=== PATIENT | female | born 1940 | race Caucasian/White ===

== ENCOUNTER 2017-09-17 08:40 | Inpatient (IN) | payer MEDICARE, OTHER ==
[2017-09-17] VITALS (15 sets, daily range): BP systolic 114–187; BP diastolic 51–114
[~2017-09-17] VITALS: Ht 160 cm; Wt 137.5 kg
--- NOTE | 2017-09-17 09:06 | ED Neurological Problem ---
General Chief Complaint: Neuro-Stroke Like Symptoms Stated Complaint: PT FEELS LIKE SHE'S HAVING A STROKE Source: patient Exam Limitations: clinical condition History of Present Illness Date Seen by Provider: Sep 17, 2017 Time Seen by Provider: 08:40 Initial Comments Patient presents to the ER by private conveyance with a chief complaint of less than hour prior to arrival she started experiencing dropping things right-sided weakness and difficulty speaking. She has no history of seizures, stroke, coronary artery disease. She quit smoking many years ago. She does have a history of diabetes, artificial valve replacement, not on blood thinners. Initial blood glucose is 278. The patient didn't take all of her medications this morning but she did not take her Lasix today because she usually skips assessment is traveling. Allergies and Home Medications Allergies Coded Allergies: amoxicillin (Verified Allergy, Unknown, 09/17/17) lisinopril (Verified Allergy, Unknown, 09/17/17) Constitutional: No chills, No diaphoresis, No fever, No malaise Eyes: Denies Blindness, Denies Blurred Vision, Denies Drainage, Denies Pain, Denies Photophobia Ears, Nose, Mouth, Throat: denies ear pain, denies ear discharge Respiratory: No cough, No short of breath Cardiovascular: No chest pain, edema, No Hx of Intervention, No palpitations, No syncope, No vascular heart diseas Gastrointestinal: No abdominal pain, No constipation, No diarrhea, No nausea Genitourinary: No discharge, No dysuria Musculoskeletal: No back pain, No joint pain Skin: No pruritus, No rash Psychiatric/Neurological: Denies Cognitive Dysfunction, Denies Headache, Numbness (r arm), Denies Tingling, Denies Unable to Move Lower Ext, Denies Unable to Move Upper Ext, Weakness Past Xbjfvii-Wghwcm-Eazkze Hx Patient Social History Alcohol Use: Denies Use Alcohol Beverage of Choice: Wine Smoking Status: Former Smoker Type Used: Cigarettes Recent Foreign Travel: No Contact w/Someone Who Travel: No Physical Exam Vital Signs Vital Signs - First Documented 09/17/17 09/17/17 08:40 08:50 Temp 96.8 Pulse 72 Resp 18 B/P (MAP) 137/85 (102) Pulse Ox 95 O2 Flow Rate 0 Capillary Refill : General Appearance: WD/WN, mild distress HEENT: PERRL/EOMI, normal ENT inspection, TMs normal, pharynx normal ( oropharynx mucosa is mildly dry.) Neck: non-tender, normal inspection Respiratory: chest non-tender, lungs clear, normal breath sounds, no respiratory distress, no accessory muscle use Cardiovascular: normal peripheral pulses, regular rate, rhythm, no edema Peripheral Pulses: 2+ Dorsalis Pedis (R), 2+ Left Dors-Pedis (L), 2+ Radial Pulses (R), 2+ Radial Pulses (L) Gastrointestinal: normal bowel sounds, non tender, soft Extremities: normal range of motion, non-tender, normal inspection, normal capillary refill, pedal edema (trace) Neurologic/Psychiatric: alert, normal mood/affect, oriented x 3, No abnormal cerebellar tests, facial droop (subtle drooping around the right eye), motor weakness (right upper extremity 4 out of 5 motor strength versus 5 out of 5 left side. Bilateral lower extremities motor strength 5 out of 5), sensory deficit (numbness right upper extremity) Crainal Nerves: normal hearing, PERRL, abnormal speech (word searching and word salad), facial asymmetry (right), facial droop, No facial paresthesias, No facial weakness Coordination/Gait: ABN nose to finger (R) Motor/Sensory: sensory deficit (right upper extremity numbness), weak motor strength RUE (4 out of 5) Skin: normal color, warm/dry Stroke Onset of Symptoms Date of Onset of Symptoms: Sep 17, 2017 Time of Symptom Onset: 07:45 Onset of Symptoms: Yes Symptoms onset unknown: No NIH Stroke Scale Assessment Select: Initial Level of Consciousness: 0=Alert (0), Level of Consciousness- Questions: 0=Answers both month/age (0), LOC Commands: 0=Performs both tasks (0) , Gaze: Normal (0), Visual Bella: 0=No visual loss (0), Facial Movement ( Facial Paresis): 1=Minor paralysis (1), Motor Function-Arms Right: 1=Drift (1), Motor Function-Arms Left: 0=No drift (0), Motor Function-Legs Right: 0=No drift (0), Motor Function-Legs Left: 0=No drift (0), Limb Ataxia: 0=Absent (0), Sensory: 1=Mild to Moderate loss (1), Best Language: 1=Mild to moderat aphasia ( 1), Dysarthria: 1=Mild to moderate loss (1), Extinction & Inattention: 0=No abnormality (0), Total: 5 Stroke Thrombolytic Exclusion Age 18 or Over: Yes Acute intenal hemorrhage: No History of CVA: No Uncontrolled Coagulation Defec: No Intracranial Hemorrhage: No Severe Hypertension: No GI or Bleed: No Subarachnoid Hemorrhage: No Intracranial Neoplasm/Aneurysm: No Oral Anticoagulants: No Surgery or Trauma: No Puncture of Non-Compressible V: No Recent CPR: No Diabetic Hemorrhagic Retinopat: No Organ Biopsy: No Recent Obstetric Delivery: No Glucose: No Significant Hepatic Dysfunctio: No NIH Stoke Scale >22: No Bacterial Endocarditis: No Pericarditis: No Improving Symptoms: No Platelets: No TPA Contraindication: No Progress/Results/Core Measures Results/Orders Lab Results Laboratory Tests Test 09/17/17 08:55 09/17/17 08:57 09/17/17 09:50 Range/Units Glucometer 278 H 70-110 MG/DL White Blood Count 6.9 4.3-11.0 10^3/uL Red Blood Count 4.24 L 4.35-5.85 10^6/uL Hemoglobin 12.3 11.5-16.0 G/DL Hematocrit 37 35-52 % Mean Corpuscular Volume 88 80-99 FL Mean Corpuscular Hemoglobin 29 25-34 PG Mean Corpuscular Hemoglobin Concent 33 32-36 G/DL Red Cell Distribution Width 14.4 10.0-14.5 % Platelet Count 180 130-400 10^3/uL Mean Platelet Volume 12.0 H 7.4-10.4 FL Neutrophils (%) (Auto) 58 42-75 % Lymphocytes (%) (Auto) 25 12-44 % Monocytes (%) (Auto) 11 0-12 % Eosinophils (%) (Auto) 5 0-10 % Basophils (%) (Auto) 1 0-10 % Neutrophils # (Auto) 4.0 1.8-7.8 X 10^3 Lymphocytes # (Auto) 1.8 1.0-4.0 X 10^3 Monocytes # (Auto) 0.8 0.0-1.0 X 10^3 Eosinophils # (Auto) 0.3 0.0-0.3 10^3/uL Basophils # (Auto) 0.0 0.0-0.1 10^3/uL Prothrombin Time 12.4 12.2-14.7 SEC INR Comment 0.9 0.8-1.4 Activated Partial Thromboplast Time 29 24-35 SEC D-Dimer 1.12 H 0.00-0.49 UG/ML Sodium Level 137 135-145 MMOL/L Potassium Level 4.4 3.6-5.0 MMOL/L Chloride Level 103 98-107 MMOL/L Carbon Dioxide Level 21 21-32 MMOL/L Anion Gap 13 5-14 MMOL/L Blood Urea Nitrogen 21 H 7-18 MG/DL Creatinine 1.33 H 0.60-1.30 MG/DL Estimat Glomerular Filtration Rate 39 BUN/Creatinine Ratio 16 Glucose Level 265 H 70-105 MG/DL Calcium Level 9.4 8.5-10.1 MG/DL Total Bilirubin 0.5 0.1-1.0 MG/DL Aspartate Amino Transf (AST/SGOT) 15 5-34 U/L Alanine Aminotransferase (ALT/SGPT) 13 0-55 U/L Alkaline Phosphatase 72 40-136 U/L Troponin I < 0.30 <0.30 NG/ML Total Protein 7.5 6.4-8.2 GM/DL Albumin 3.8 3.2-4.5 GM/DL Urine Color YELLOW Urine Clarity CLEAR Urine pH 6 5-9 Urine Specific [place] 1.010 L 1.016-1.022 Urine Protein NEGATIVE NEGATIVE Urine Glucose (UA) 2+ H NEGATIVE Urine Ketones NEGATIVE NEGATIVE Urine Nitrite NEGATIVE NEGATIVE Urine Bilirubin NEGATIVE NEGATIVE Urine Urobilinogen NORMAL NORMAL MG/DL Urine Leukocyte Esterase NEGATIVE NEGATIVE Urine RBC (Auto) NEGATIVE NEGATIVE Urine RBC NONE /HPF Urine WBC NONE /HPF Urine Squamous Epithelial Cells NONE /HPF Urine Crystals NONE /LPF Urine Bacteria NEGATIVE /HPF Urine Casts NONE /LPF Urine Mucus NEGATIVE /LPF Urine Culture Indicated NO My Orders Orders - CHRISSY HER Ct Head Wo-R/O Stroke (09/17/17 08:44) Cbc With Automated Diff (09/17/17 08:59) Protime With Inr (09/17/17 08:59) Partial Thromboplastin Time (09/17/17 08:59) Comprehensive Metabolic Panel (09/17/17 08:59) Fibrin Degradation Products (09/17/17 08:59) Troponin I (09/17/17 08:59) Ua Culture If Indicated (09/17/17 08:59) Chest 1 View, Ap/Pa Only (09/17/17 08:59) Ekg Tracing (09/17/17 08:59) Nothing By Mouth (09/17/17 Lunch) Accucheck Stat ONCE (09/17/17 08:59) Saline Lock/Iv-Start (09/17/17 08:59) Saline Lock/Iv-Start (09/17/17 08:59) Vital Signs - Stroke Q15M (09/17/17 08:59) O2 (09/17/17 08:59) Intake & Output 06,14,22 (09/17/17 08:59) Monitor-Rhythm Ecg Trace Only (09/17/17 08:59) Dysphagia Screening Tool (09/17/17 08:59) Post Thrombolytic Adminstratio (09/17/17 08:59) Vital Signs - Stroke Q15M (09/17/17 09:30) Dysphagia Screening Tool (09/17/17 09:30) Alteplase (Activase) (Activase Injection (09/17/17 09:30) Ns Iv 1000 Ml (Sodium Chloride 0.9%) (09/17/17 09:30) Post Thrombolytic Adminstratio (09/17/17 09:30) Ct Angio Head W Wo (09/17/17 09:30) Post Thrombolytic Adminstratio (09/17/17 09:30) Iohexol Injection (Omnipaque 350 Mg/Ml 1 (09/17/17 10:15) Ns (Ivpb) (Sodium Chloride 0.9%) (09/17/17 10:15) Lactated Ringers (Lr 1000 Ml Iv Solution (09/17/17 10:09) Medications Given in ED Current Medications Medications Dose Ordered Sig/Ryan Route Start Time Stop Time Status Last Admin Dose Admin Alteplase, Recombinant (0.9mg/ kg-max 90mg) with ... 0930 ONCE IV 09/17/17 09:30 09/17/17 09:32 DC 09/17/17 09:50 90 MG Iohexol 65 ml ONCE ONCE IV 09/17/17 10:15 09/17/17 10:16 DC 09/17/17 10:32 65 ML Sodium Chloride 250 ml ONCE ONCE IV 09/17/17 10:15 09/17/17 10:16 DC 09/17/17 10:32 80 ML Vital Signs/I&O Vital Sign - Last 12Hours 09/17/17 09/17/17 08:40 08:50 Temp 96.8 Pulse 72 Resp 18 B/P (MAP) 137/85 (102) Pulse Ox 95 O2 Flow Rate 0 ECG Initial ECG Impression Date: Sep 17, 2017 Initial ECG Impression Time: 08:50 Initial ECG Rate: 67 Initial ECG Rhythm: Normal Sinus Initial ECG Intervals: Normal Initial ECG Impression: Normal, Nonspecific Changes (right bundle-branch block) Initial ECG Comparisson: No Previous ECG Available Comment No ST segment elevation or depression. Diagnostic Imaging Diagonstic Imaging: CT Plain Films/CT/US/NM/MRI: head Comments VIA [facility], [facility]. [place], [place] NAME: TELLY ZAMBRANO [facility] REC#: [id number] PT STATUS: REG ER : 1940 PHYSICIAN: CHRISSY HER MD ADMIT DATE: 09/17/17/ER Draft Date of Exam:09/17/17 CT HEAD WO-R/O STROKE Clinical indication: Stroke, slurred speech, and right-sided weakness. Exam: Axial CT scan of the brain performed without IV contrast. Comparison: None. Findings: There is no evidence of acute cerebral infarct, intracranial hemorrhage, or gross mass effect. There is a roughly 7 mm circumscribed low-attenuation area seen near the region of the right caudate head which may represent a chronic lacunar infarct. There is subtle focal areas of low-attenuation white matter changes in both cerebral hemispheres, likely representing chronic small vessel ischemic disease. There is diffuse brain parenchymal volume loss noted. There is calcification seen in the left sylvian fissure region, likely vascular. There is normal aguilar-white matter distinction. The brain parenchymal volume appears appropriate for patient's age. There is no significant midline shift or herniation. There is no evidence of hydrocephalus. The basal cisterns are unremarkable. The skull, extracranial soft tissue, and orbits are unremarkable. There is minimal mucosal thickening involving both maxillary sinuses. Impression: 1: There is no gross evidence of acute intracranial process. If there is continued clinical concern for acute cerebral infarct, then MRI of the brain would better evaluate. 2: Suspected small chronic lacunar infarct seen adjacent to the right caudate head. 3: Age-related brain parenchymal changes. Dictated on workstation # [id number] Dict: 09/17/17 0854 Trans: 09/17/17 0908 GREGOR [id number] Interpreted by: ZAIDA GAGE MD Electronically signed by: Reviewed: Reviewed by Me Diagonstic Imaging: CT (angio) Plain Films/CT/US/NM/MRI: head (neck) Comments VIA [place], [place] NAME: TELLY ZAMBRANO [facility] REC#: [id number] PT STATUS: REG ER : 1940 PHYSICIAN: CHRISSY HER MD ADMIT DATE: 09/17/17/ER Draft Date of Exam:09/17/17 CT ANGIO HEAD W WO CLINICAL INDICATION: Questionable stroke. EXAM: A CT angiogram of the head was performed with 65 cc of Omnipaque 350 IV contrast. Sagittal and coronal MIP images were created to better evaluate the anatomy. Head CT postcontrast delayed images were also obtained. COMPARISON: Head CT without contrast dated 09/17/2017. FINDINGS: There is atherosclerotic disease involving the bilateral cavernous carotid arteries which show at least moderate stenoses bilaterally. Otherwise, there is no evidence of occlusion of the [place] vascular structures. There is no vascular malformation, aneurysm, or dissection seen. The bilateral ACAs, MCAs, inspector semiconductor wafer, basilar artery, and intradural vertebral arteries are patent and unremarkable. The bilateral PICAs are patent. The dural venous sinuses show no gross abnormality as visualized. The brain parenchyma is stable with no evidence of acute cerebral infarct, intracranial hemorrhage, brain herniation, or midline shift. There is brain parenchymal volume loss again seen. There is no abnormal IV contrast enhancement or enhancing mass seen. There is no hydrocephalus. The basal cisterns are unremarkable. A partial empty sella turcica is noted. The extracranial soft tissue, skull, and orbits are unremarkable. Stable mild bilateral maxillary sinus disease. The temporal bone structures show no significant abnormality. IMPRESSION: 1. There is no CT evidence of acute cerebral infarct. There is no abnormal IV contrast enhancement, intracranial hemorrhage, or brain herniation. 2. 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 3. Otherwise, the remainder of the [place] vascular structures show no significant stenosis, vascular malformation, aneurysm, or dissection. 4. Stable age-related brain parenchymal changes. 5. Partially empty sella turcica. Dictated on workstation # [id number] Dict: 09/17/17 1048 Trans: 09/17/17 1106 [id number] Interpreted by: ZAIDA GAGE MD Electronically signed by: Reviewed: Reviewed by Me Diagonstic Imaging: Xray Plain Films/CT/US/NM/MRI: chest Comments VIA [facility]. [place], [place] NAME: TELLY ZAMBRANO [facility] REC#: [id number] PT STATUS: REG ER : 1940 PHYSICIAN: CHRISSY HER MD ADMIT DATE: 09/17/17/ER Draft Date of Exam:09/17/17 CHEST 1 VIEW, AP/PA ONLY INDICATION: Stroke. Time of exam 9:22 AM No prior studies are available for comparison. The heart is enlarged. A prosthetic cardiac valve is identified. The lungs are clear. There is no evidence of infiltrate or congestive failure. No effusion or pneumothorax is seen. IMPRESSION: Cardiomegaly. No acute cardiopulmonary process is detected. Dictated on workstation # [id number] Dict: 09/17/17 0935 Trans: 09/17/17 0938 [facility] [id number] Interpreted by: RAISA NINA MD Electronically signed by: Reviewed: Reviewed by Me Consults Consults : Consults Notes [facility] Neuro: Vin; he agrees with doing TPA at this time. Do not have any contraindication. After the TPA is gone and he recommends getting a CTA and if there is any large caliber obstruction or stenosis should call him back. If there is not then he felt comfortable keeping her down here for a inpatient workup. Departure Communication (Admissions) Time/Spoke to Admitting Phy: 11:[address] Lyles and she agrees to see the patient. Impression Impression: Primary Impression: Cerebrovascular accident due to cerebral artery occlusion Disposition: ADMITTED INPATIENT Condition: Stable Admissions Decision to Admit Reason: Admit from ER (General) Decision to Admit/Date: Sep 17, 2017 Time/Decision to Admit Time: 11:21 Departure-Patient Inst. Referrals: NO,LOCAL PHYSICIAN (PCP/Family) Primary Care Physician Copy Copies To 1: JENNIFER VALADEZ MD, TITUS J Sep 17, 2017 09:06
[2017-09-17 09:13] LABS: BASOPHILS % (AUTO) 1 % (0-10); EOSINOPHILS # (AUTO) 0.3 10^3/uL (0.0-0.3); EOSINOPHILS % (AUTO) 5 % (0-10); HEMATOCRIT 37 % (35-52); HEMOGLOBIN 12.3 G/DL (11.5-16.0); LYMPHOCYTES # (AUTO) 1.8 X 10^3 (1.0-4.0); LYMPHOCYTES % (AUTO) 25 % (12-44); MEAN CORPUSCULAR HEMOGLOBIN 29 PG (25-34); MEAN CORPUSCULAR HGB CONC 33 G/DL (32-36); MEAN CORPUSCULAR VOLUME 88 FL (80-99); MONOCYTES # (AUTO) 0.8 X 10^3 (0.0-1.0); MONOCYTES % (AUTO) 11 % (0-12); NEUTROPHILS % (AUTO) 58 % (42-75); PLATELET COUNT 180 10^3/uL (130-400); RED BLOOD COUNT 4.24 10^6/uL (4.35-5.85); RED CELL DISTRIBUTION WIDTH 14.4 % (10.0-14.5); WHITE BLOOD COUNT 6.9 10^3/uL (4.3-11.0)
[2017-09-17] MEDS ORDERED: ALTEPLASE 100 MG/VIAL (ACTIVASE) IV ONE (09:30)
[2017-09-17] MEDS ORDERED: NS IV 1000 ML 1,000 ML IV SCH (09:30)
[2017-09-17 09:32] LABS: ALANINE AMINOTRANSFERASE 13 U/L (0-55); ALBUMIN 3.8 GM/DL (3.2-4.5); ALKALINE PHOSPHATASE 72 U/L (40-136); BILIRUBIN,TOTAL 0.5 MG/DL (0.1-1.0); BUN/CREATININE RATIO 16; CALCIUM 9.4 MG/DL (8.5-10.1); CARBON DIOXIDE 21 MMOL/L (21-32); CHLORIDE 103 MMOL/L (98-107); CREATININE SERUM 1.33 MG/DL (0.60-1.30); GFR ESTIMATED 39; GLUCOSE 265 MG/DL (70-105); INR 0.9 (0.8-1.4); POTASSIUM 4.4 MMOL/L (3.6-5.0); PROTHROMBIN TIME PATIENT 12.4 SEC (12.2-14.7); SODIUM 137 MMOL/L (135-145); TOTAL PROTEIN 7.5 GM/DL (6.4-8.2)
[2017-09-17 09:35] LABS: FIBRIN DEGRADATION PRODUCTS 1.12 UG/ML (0.00-0.49)
--- NOTE | 2017-09-17 09:38 | Diagnostic Imaging Report ---
INDICATION: Stroke. Time of exam 9:22 AM No prior studies are available for comparison. The heart is enlarged. A prosthetic cardiac valve is identified. The lungs are clear. There is no evidence of infiltrate or congestive failure. No effusion or pneumothorax is seen. IMPRESSION: Cardiomegaly. No acute cardiopulmonary process is detected. Dictated by: Dictated on workstation # [id number]
[2017-09-17 10:02] LABS: BILIRUBIN,URINE NEGATIVE (NEGATIVE); CLARITY,URINE CLEAR; COLOR,URINE YELLOW; GLUCOSE, URINE (UA) 2+ (NEGATIVE); KETONES,URINE NEGATIVE (NEGATIVE); LEUKOCYTE ESTERASE ,URINE NEGATIVE (NEGATIVE); NITRITE,URINE NEGATIVE (NEGATIVE); PH,URINE 6 (5-9); PROTEIN,URINE NEGATIVE (NEGATIVE); UROBILINOGEN,URINE NORMAL (NORMAL)
[2017-09-17] MEDS ORDERED: LACTATED RINGERS 1,000 ML IV ONE (10:09)
[2017-09-17 10:14] LABS: BACTERIA,URINE NEGATIVE /HPF
[2017-09-17] MEDS ORDERED: IOHEXOL 350 MG/ML 100 ML (OMNIPAQUE 350) VIAL IV ONE (10:15)
[2017-09-17] MEDS ORDERED: NS 250 ML (IVPB) BAG IV ONE (10:15)
--- NOTE | 2017-09-17 11:06 | Diagnostic Imaging Report ---
CLINICAL INDICATION: Questionable stroke. EXAM: A CT angiogram of the head was performed with 65 cc of Omnipaque 350 IV contrast. Sagittal and coronal MIP images were created to better evaluate the anatomy. Head CT postcontrast delayed images were also obtained. COMPARISON: Head CT without contrast dated 09/17/2017. FINDINGS: There is atherosclerotic disease involving the bilateral cavernous carotid arteries which show at least moderate stenoses bilaterally. Otherwise, there is no evidence of occlusion of the [place] vascular structures. There is no vascular malformation, aneurysm, or dissection seen. The bilateral ACAs, MCAs, tyre finisher and examiner, basilar artery, and intradural vertebral arteries are patent and unremarkable. The bilateral PICAs are patent. The dural venous sinuses show no gross abnormality as visualized. The brain parenchyma is stable with no evidence of acute cerebral infarct, intracranial hemorrhage, brain herniation, or midline shift. There is brain parenchymal volume loss again seen. There is no abnormal IV contrast enhancement or enhancing mass seen. There is no hydrocephalus. The basal cisterns are unremarkable. A partial empty sella turcica is noted. The extracranial soft tissue, skull, and orbits are unremarkable. Stable mild bilateral maxillary sinus disease. The temporal bone structures show no significant abnormality. IMPRESSION: 1. There is no CT evidence of acute cerebral infarct. There is no abnormal IV contrast enhancement, intracranial hemorrhage, or brain herniation. 2. 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 3. Otherwise, the remainder of the [place] vascular structures show no significant stenosis, vascular malformation, aneurysm, or dissection. 4. Stable age-related brain parenchymal changes. 5. Partially empty sella turcica. Dictated by: Dictated on workstation # [id number]
--- NOTE | 2017-09-17 12:25 | History & Physical-Hospitalist ---
HPI History of Present Illness: HPI/Chief Complaint Pt is a 77yoCF with a PMH of DM, HTN, HLD from [facility] who presented to the ER with CC slurred speech and weakness. History is difficult to obtain as she is still having some difficulty finding words. Her sister in law at bedside provides some history as well. She reports she was in [place] visiting family when she had acute onset slurred speech and inability to find words. She does not report any other symptoms but her sister in law states she also had generalized weakness at onset and was unable to walk. On arrival to the ER she was found to have an NIH of [address] head was negative so she was deemed a candidate for TPA. She reports since receiving TPA she does feel better and that he speech is somewhat improving. Exam Limitations: clinical condition Date Seen 09/17/17 Time Seen by Provider: 12:05 Attending Physician Jennifer Hoffman MD PCP No,Local Physician Referring Physician Date of Admission Sep 17, 2017 at 11:20 Home Medications & Allergies Home Medications Reviewed patient Home Medication Reconciliation Form Allergies Allergies Coded Allergies amoxicillin (Verified Allergy, Unknown, 09/17/17) lisinopril (Verified Allergy, Unknown, 09/17/17) Past Lzvywcu-Eahbnr-Rijksh Hx Patient Social History Marrital Status: Alcohol Use: Denies Use Recreational Drug Use: No Smoking Status: Former Smoker Type Used: Cigarettes Recent Foreign Travel: No Contact w/other who traveled: No Recent Hopitalizations: No Recent Infectious Disease Expo: No Seasonal Allergies Seasonal Allergies: No Surgeries Yes Cardiac Respiratory Yes Currently Using CPAP: Yes Cardiovascular Yes High Cholesterol, Hypertension Neurological No Genitourinary No Gastrointestinal No Musculoskeletal No Endocrine History of Endocrine Disorders: Yes Endocrine Disorders: Diabetes, Non-Insulin dep HEENT History of HEENT Disorders: No Cancer No Psychosocial History of Psychiatric Problem: No Integumentary History of Skin or Integumenta: No Family Medical History Significant Family History: No Pertinent Family Hx Review of Systems Constitutional: No chills, No fever, weakness EENTM: No blurred vision, No double vision, No nose congestion, No throat pain Respiratory: No cough, No dyspnea on exertion, No short of breath Cardiovascular: No chest pain, No edema, No palpitations Gastrointestinal: No abdominal pain, No constipation, No diarrhea, No nausea, No vomiting Genitourinary: No dysuria, No frequency : No Musculoskeletal: No joint pain, No muscle pain, muscle weakness Skin: No lesions, No rash Psychiatric/Neurological: Denies Anxiety, Denies Depressed, Denies Headache, Denies Numbness, Denies Paresthesia, Denies Tingling, Weakness, Other (slurred speech) Physical Exam Physical Exam Vital Signs Vital Signs - First Documented 09/17/17 09/17/17 09/17/17 08:40 08:50 12:50 Temp 96.8 Pulse 72 Resp 18 B/P (MAP) 137/85 (102) Pulse Ox 95 O2 Delivery Room Air O2 Flow Rate 0 Capillary Refill : Less Than 3 Seconds General Appearance: No Apparent Distress, WD/WN, Obese HEENT: PERRL/EOMI, Moist Mucous Membranes Neck: Non Tender, Supple, No JVD Respiratory: Lungs Clear, No Respiratory Distress Cardiovascular: Regular Rate, Rhythm, No Murmur Gastrointestinal: Normal Bowel Sounds, Non Tender, Soft Extremity: Normal Capillary Refill, Non Tender, No Calf Tenderness, No Pedal Edema Neurologic/Psychiatric: Alert, Oriented x3, No Motor/Sensory Deficits, Normal Mood/Affect, art psychotherapist or therapist II-XII Norm as Tested, Other (dysphasia noted, gait not tested) Skin: Normal Color, Warm/Dry Results Results/Procedures Lab Laboratory Tests 09/17/17 08:57 09/18/17 03:40 Radiology Date of Exam:09/17/17 CT HEAD WO-R/O STROKE Clinical indication: Stroke, slurred speech, and right-sided weakness. Exam: Axial CT scan of the brain performed without IV contrast. Comparison: None. Findings: There is no evidence of acute cerebral infarct, intracranial hemorrhage, or gross mass effect. There is a roughly 7 mm circumscribed low-attenuation area seen near the region of the right caudate head which may represent a chronic lacunar infarct. There is subtle focal areas of low-attenuation white matter changes in both cerebral hemispheres, likely representing chronic small vessel ischemic disease. There is diffuse brain parenchymal volume loss noted. There is calcification seen in the left sylvian fissure region, likely vascular. There is normal aguilar-white matter distinction. The brain parenchymal volume appears appropriate for patient's age. There is no significant midline shift or herniation. There is no evidence of hydrocephalus. The basal cisterns are unremarkable. The skull, extracranial soft tissue, and orbits are unremarkable. There is minimal mucosal thickening involving both maxillary sinuses. Impression: 1: There is no gross evidence of acute intracranial process. If there is continued clinical concern for acute cerebral infarct, then MRI of the brain would better evaluate. 2: Suspected small chronic lacunar infarct seen adjacent to the right caudate head. 3: Age-related brain parenchymal changes. Date of Exam:09/17/17 CT ANGIO HEAD W WO CLINICAL INDICATION: Questionable stroke. EXAM: A CT angiogram of the head was performed with 65 cc of Omnipaque 350 IV contrast. Sagittal and coronal MIP images were created to better evaluate the anatomy. Head CT postcontrast delayed images were also obtained. COMPARISON: Head CT without contrast dated 09/17/2017. FINDINGS: There is atherosclerotic disease involving the bilateral cavernous carotid arteries which show at least moderate stenoses bilaterally. Otherwise, there is no evidence of occlusion of the [place] vascular structures. There is no vascular malformation, aneurysm, or dissection seen. The bilateral ACAs, MCAs, professor of historical theology, basilar artery, and intradural vertebral arteries are patent and unremarkable. The bilateral PICAs are patent. The dural venous sinuses show no gross abnormality as visualized. The brain parenchyma is stable with no evidence of acute cerebral infarct, intracranial hemorrhage, brain herniation, or midline shift. There is brain parenchymal volume loss again seen. There is no abnormal IV contrast enhancement or enhancing mass seen. There is no hydrocephalus. The basal cisterns are unremarkable. A partial empty sella turcica is noted. The extracranial soft tissue, skull, and orbits are unremarkable. Stable mild bilateral maxillary sinus disease. The temporal bone structures show no significant abnormality. IMPRESSION: 1. There is no CT evidence of acute cerebral infarct. There is no abnormal IV contrast enhancement, intracranial hemorrhage, or brain herniation. 2. 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 3. Otherwise, the remainder of the [place] vascular structures show no significant stenosis, vascular malformation, aneurysm, or dissection. 4. Stable age-related brain parenchymal changes. 5. Partially empty sella turcica. Assessment/Plan Admission Diagnosis Dysphasia- rule out stroke Admission Status: Inpatient Order (span 2 midnights) Reason for Inpatient Admission: Acute onset dysphasia, rule out stroke s/p TPA Diagnosis/Problems Diagnosis/Problems (1) Acute CVA (cerebrovascular accident) Status: Acute Assessment & Plan: Clinically appears to be an acute stroke though no evidence upon review of imaging S/p TPA will monitor in ICU Neurochecks Will get MRI, carotid dopplers, echo Monitor on Tele Will getting lipid panel Hold ASA until 24 hour after TPA PT/OT/ST (2) Dysphasia Status: Acute Assessment & Plan: Will consult Speech for formal eval (3) HTN (hypertension) Status: Chronic Assessment & Plan: Low to normotensive currently Hold antihypertensives Qualifiers: Qualified Codes: I10 - Essential (primary) hypertension (4) Non-insulin dependent type 2 diabetes mellitus Status: Chronic Assessment & Plan: Will hold metformin as just received contrast SSI A (5) Dyslipidemia associated with type 2 diabetes mellitus Status: Chronic Assessment & Plan: Resume statin tonight if passes swalow eval (6) Prophylactic measure Status: Acute Assessment & Plan: Hold Lovenox for TPA SCDs only today- can resume tomorrow NPO until swallow eval [place] [id number] Clinical Quality Measures Stroke: Date of last known well: Sep 17, 2017 Time of last known well: 07:45 Symptoms onset unknown: No Quality Measures-Stroke Pt: Lipid panel ordered, VTE JENNIFER HOFFMAN MD Sep 17, 2017 12:25
[2017-09-17] MEDS ORDERED: METO-370 PO (13:27)
[2017-09-17] MEDS ORDERED: IRBE150T26 PO (13:27)
[2017-09-17] MEDS ORDERED: ROSU40TA21 PO (13:27)
[2017-09-17] MEDS ORDERED: OMEP20CA12 PO (13:27)
[2017-09-17] MEDS ORDERED: AMLO10TA2 PO (13:27)
[2017-09-17] MEDS ORDERED: FURO40TA4 PO (13:27)
[2017-09-17] MEDS ORDERED: GLIP-197 PO (13:28)
[2017-09-17] MEDS ORDERED: SPIR25TA3 PO (13:28)
[2017-09-17] MEDS ORDERED: GLIP-173 PO (13:50)
[2017-09-17] MEDS ORDERED: ASPI-983 PO (13:51)
[2017-09-17] MEDS ORDERED: PEG15DRO3 OU (13:51)
[2017-09-17] MEDS ORDERED: METF1000 PO ×2 (13:51)
[2017-09-17] MEDS ORDERED: CHOL5000 PO (13:51)
--- NOTE | 2017-09-17 14:58 | Diagnostic Imaging Report ---
EXAMINATION: Bilateral carotid Doppler. INDICATION: CVA. COMPARISON: There are no previous studies available for comparison. FINDINGS: There is mild hard and soft plaque formation of both carotid systems. The flow velocities failed to show any sign of a hemodynamically significant stenosis of the common or internal carotid arteries. The flow velocities are as follows: Mid CCA: right 108 cm/s and left 79.5. Proximal ICA: right 105 and left 62.7. Mid ICA: right 103 and left 87. Distal ICA: right 87.6 and left 66.8. ICA/CCA: right 0.97 and left 1.09. Both vertebral arteries are identified and there is antegrade flow bilaterally. IMPRESSION: There is atherosclerotic disease involving both carotid systems but there is no evidence for a hemodynamically significant stenosis of the common or internal carotid arteries. Dictated by: Dictated on workstation # [id number]
--- NOTE | 2017-09-17 15:02 | Physical Therapy Evaluation ---
PT Evaluation-General Medical Diagnosis Admission Date Sep 17, 2017 at 11:20 Medical Diagnosis: CVA Onset Date: Sep 17, 2017 Therapy Diagnosis Therapy Diagnosis: generalized weakness/debility Height/Weight Height (Feet): 5 Height (Inches): 3.00 Weight (Pounds): 320 Precautions Precautions/Isolations: Fall Prevention, Standard Precautions Weight Bear Status Right Lower Extremity: Right Weight Bearing/Tolerated Left Lower Extremity: Left Weight Bearing/Tolerated Referral Physician: Yasmin Reason for Referral: Evaluation/Treatment Medical History Pertinent Medical History: DM, HTN Additional Medical History morbid obesity Current History ED with right sided weakness and difficulty speaking Reviewed History: Yes Social History Home: Single Level Current Living Status: Spouse Entry Into Home: Level Entry Prior/Core FIM Prior Level of Function Functional [place] Measure 0=Not Assessed/NA 4=Minimal Assistance 1=Total Assistance 5=Supervision or Setup 2=Maximal Assistance 6=Modified [place] 3=Moderate Assistance 7=Complete [place] Bed Mobility: 6 Transfers (B,C,W/C) (FIM): 6 Gait: 6 PT Evaluation-Current Subjective Patient agrees to PT. Pain Numeric Pain Scale: 0-No Pain Location: No Pain Reported Objective Patient Orientation: Normal For Age Problem Solving: Good Attachments: Rosario Catheter ROM/Strength ROM Lower Extremities bilateral LE WNL Strength Lower Extremities right knee flexion/extension 4+/5; hip flexion 4+/5; DF/PF 4+/5; abd/add 4+/5 left knee flexion/extension 4+/5; hip flexion 4+/5; DF/PF 4+/5; abd/add 4+/5 Integumentary/Posture Integumentary refer to nursing notes Bowel Incontinence: No Bladder Incontinence: Rosario Cath Posture WFL Neuromuscular (Tone, Coordination, Reflexes) slightly diminished coordination right LE with diminished proprioception Sensory Vision: Functional Hearing: Functional Sensation Right Lower Extremit: Intact Sensation Left Lower Extremity: Intact Transfers Functional [place] Measure 0=Not Assessed/NA 4=Minimal Assistance 1=Total Assistance 5=Supervision or Setup 2=Maximal Assistance 6=Modified [place] 3=Moderate Assistance 7=Complete [place] Transfers (B, C, W/C) (FIM): 5 Scootin Rollin Supine to/from Sit: 5 Sit to/from Stand: 5 Gait Mode of Locomotion: Walk Anticipated Mode of Locomotion: Walk Gait (FIM): 4 Distance (FIM): 3=150 ft Distance: 250' Gait Level of Assist: 4 Gait Persons Needed: 1 Gait Assistive Device: FWW Comments/Gait Description initially listing to right, however, did correct during treatment/ambulation Balance Sitting Static: Normal Sitting Dynamic: Normal Standing Static: Fair Standing Dynamic: Fair Assessment/Needs 77 y.o. female, will benefit from skilled PT to address functional strength and mobility to improve current LOF and to safely return to home (in [place]) at [facility]. Rehab Potential: Good PT Prison Goals Prison Goals PT Prison Goals Time Frame: Sep 26, 2017 Transfers (B,C,W/C) (FIM): 6 Gait (FIM): 6 Gait distance (FIM): 3=150 ft Distance: 275' Gait Level of Assist: 6 Gait Assistive Device: FWW PT Plan Problem List Problem List: Activity Tolerance, Balance Treatment/Plan Treatment Plan: Continue Plan of Care Treatment Plan: Bed Mobility, Education, Functional Activity Chary, Functional Strength, Gait, Safety, Therapeutic Exercise, Transfers Treatment Duration: Sep 26, 2017 Frequency: 6 times per week Estimated Hrs Per Day: .5 hour per day Patient and/or Family Agrees t: Yes Safety Risks/Education Patient Education: Safety Issues Teaching Recipient: Patient Teaching Methods: Discussion Response to Teaching: Verbalize Understanding Time/GCodes Time In: 1408 Time Out: 1435 Total Billed Treatment Time: 27 Total Billed Treatment 1 visit EVHighC 27 min G Codes Necessary: Yes PT/OT Therapy GCodes Therapy Functional Limitation: Physical Therapy Test(s)/Tool used to determine: Level of Assistance Scale Functional Limitation-Current Modifier: CK Functional Limitation-Goal Charge Code: MOBANDREEAAL Modifier: JOANNA MCADAMS PT Sep 17, 2017 15:02
--- NOTE | 2017-09-17 15:16 | Occupational Therapy Eval ---
OT Evaluation-General/PLF Medical Diagnosis Admission Date Sep 17, 2017 at 11:20 Medical Diagnosis: CVA Onset Date: Sep 17, 2017 Therapy Diagnosis Therapy Diagnosis: decreased self care Height/Weight Height (Feet): 5 Height (Inches): 3.00 Weight (Pounds): 320 Precautions Precautions/Isolations: Fall Prevention, Standard Precautions Referral Physician: Yasmin Medical History Pertinent Medical History: DM, HTN Additional Medical History high cholesterol Current History Pt was visiting family in [facility] when she developed CVA symptoms. Social History Home: Single Level Current Living Status: Spouse Entry Into Home: Level Entry ADL-Prior Level of Function ADL PLOF Comments Pt reports being independent with self care and mobility. Occasionally uses a walker for long distances OT Current Status Subjective Pt sitting in chair, agrees to therapy. Pt has no c/o pain. Pt is having word finding difficulty throughout session. Mental Status/Objective Patient Orientation: Person, Place Attachments: Rosario Catheter Current Glasses/Contacts: Yes Hearing Aids: No Dentures/Partials: No Hand Dominance: Right Upper Extremity ROM Grossly WFL Upper Extremity Coordination Decreased right UE Upper Extremity Sensation Impaired right UE left UE intact Upper Extremity Strength Grossly 4/5 bilaterally Pt also has decreased proprioception right UE. ADL-Treatment ADL-Current Pt participated in UE assessment while seated in chair. Pt has difficulty doffing socks and requires assist to complete task. Pt sit to stand with supervision. Transfer to EOB with SBA and cues for safety. Assist to manage multiple lines. Sit to supine with minimal assistance for LE. Pt resting in bed with needs met and staff present for imaging after session. Functional [place] Measure 0=Not Assessed/NA 4=Minimal Assistance 1=Total Assistance 5=Supervision or Setup 2=Maximal Assistance 6=Modified [place] 3=Moderate Assistance 7=Complete IndependenceIRFPAI Quality Coding Scale 6 Independent with activity with or without an assistive device 5 Patient requires set up or clean up by helper. Patient completes activity by themselves 4 Supervision or touching assist (CGA). [place] provide cues , steadying assist 3 The helper provides less than half the effort to complete the activity 2 The helper provides more than half the effort to complete the activity 1 Dependent. The helper does all the effort to complete an activity 7 Patient refused to complete or attempt activity 9 The patient did not perform the activity before the current illness or injury 88 Not attempted due to Medical conditions or safety concerns Education OT Patient Education: Rehab process Teaching Recipient: Patient Teaching Methods: Discussion Response to Teaching: Verbalize Understanding OT Short Term Goals Short Term Goals 1=Demonstrate adherence to instructed precautions during ADL tasks. 2=Patient will verbalize/demonstrate understanding of assistive devices/ modifications for ADL. 3=Patient will improve strength/tolerance for activity to enable patient to perform ADL's. OT Manager Of Regulatory Affairs Goals [facility] Goals Time Frame: Sep 28, 2017 Eating (FIM): 6 Grooming(FIM): 6 Bathing(FIM): 5 Upper Body Dressing(FIM): 6 Lower Body Dressing(FIM): 6 Toileting(FIM): 6 Toilet/Commode Transfer(FIM): 6 Additional Goals: 2-Verbalize Understanding, 3-ImproveStrength/Chary 1=Demonstrate adherence to instructed precautions during ADL tasks. 2=Patient will verbalize/demonstrate understanding of assistive devices/ modifications for ADL. 3=Patient will improve strength/tolerance for activity to enable patient to perform ADL's. OT Education/Plan Problem List/Assessment Assessment: Decreased UE Strength, Dependent Transfers, Impaired Coordination, Impaired I ADL's, Impaired Self-Care Skills Pt demonstrates decreased ADL functioning and mobility. Pt to benefit from skilled OT intervention for ADL training, transfers, strengthening, and safety education to improve functional level and allow safe discharge. Discharge Recommendations Plan/Recommendations: Continue POC Treatment Plan/Plan of Care Treatment,Training & Education: Yes Patient would benefit from OT for education, treatment and training to promote independence in ADL's, mobility, safety and/or upper extremity function for ADL' s. Plan of Care: ADL Retraining, Functional Mobility, UE Funct Exercise/Act Treatment Duration: Sep 28, 2017 Frequency: 5 times per week Estimated Hrs Per Day: .25 hour per day Rehab Potential: Good Time/GCodes Start Time: 14:39 Stop Time: 14:54 Total Time Billed (hr/min): 15 Billed Treatment Time 1 visit, EVM(15minutes) PT/OT Therapy GCodes Therapy Functional Limitation: Physical Therapy Test(s)/Tool used to determine: Level of Assistance Scale Functional Limitation-Current Modifier: CK Functional Limitation-Goal Charge Code: MOBGOAL Modifier: ROBERTO DESAI OT Sep 17, 2017 15:16
[2017-09-17] MEDS: inSUlin ASPART (NovoLOG) 1 UNIT/0.01 ML (CHARGE PER UNIT) SC SCH ×2 (15:47→22:31)
[2017-09-17] MEDS ORDERED: hydrALAZINE (APESOLINE) 20 MG/ML VIAL IV PRN (17:30)
[2017-09-17] MEDS ORDERED: CATHETER FLUSH 10 ML SYR IV PRN (19:45)
[2017-09-17] MEDS ORDERED: ACETAMINOPHEN 650 MG SUPP (TYLENOL) PR PRN (19:45)
[2017-09-17] MEDS: NS IV 1000 ML 1,000 ML IV SCH (19:48)
[2017-09-17] MEDS: ATORVASTATIN 80 MG (LIPITOR) TABLET PO SCH (21:50)
[2017-09-18] VITALS (16 sets, daily range): BP systolic 125–166; BP diastolic 44–70
[2017-09-18 04:16] LABS: BASOPHILS % (AUTO) 1 % (0-10); EOSINOPHILS # (AUTO) 0.3 10^3/uL (0.0-0.3); EOSINOPHILS % (AUTO) 3 % (0-10); HEMATOCRIT 34 % (35-52); HEMOGLOBIN 11.4 G/DL (11.5-16.0); LYMPHOCYTES # (AUTO) 2.2 X 10^3 (1.0-4.0); LYMPHOCYTES % (AUTO) 29 % (12-44); MEAN CORPUSCULAR HEMOGLOBIN 29 PG (25-34); MEAN CORPUSCULAR HGB CONC 33 G/DL (32-36); MEAN CORPUSCULAR VOLUME 87 FL (80-99); MEAN PLATELET VOLUME 12.2 FL (7.4-10.4); MONOCYTES # (AUTO) 0.6 X 10^3 (0.0-1.0); MONOCYTES % (AUTO) 8 % (0-12); NEUTROPHILS # (AUTO) 4.4 X 10^3 (1.8-7.8); NEUTROPHILS % (AUTO) 59 % (42-75); PLATELET COUNT 86 10^3/uL (130-400); RED BLOOD COUNT 3.95 10^6/uL (4.35-5.85); RED CELL DISTRIBUTION WIDTH 14.3 % (10.0-14.5); WHITE BLOOD COUNT 7.4 10^3/uL (4.3-11.0)
[2017-09-18 04:51] LABS: BUN/CREATININE RATIO 15; CALCIUM 8.5 MG/DL (8.5-10.1); CARBON DIOXIDE 20 MMOL/L (21-32); CHLORIDE 110 MMOL/L (98-107); CHOLESTEROL 212 MG/DL (< 200); CREATININE SERUM 0.84 MG/DL (0.60-1.30); GFR ESTIMATED > 60; GLUCOSE 114 MG/DL (70-105); HDL CHOLESTEROL 29 MG/DL (40-60); MAGNESIUM 1.7 MG/DL (1.8-2.4); POTASSIUM 4.2 MMOL/L (3.6-5.0); SODIUM 139 MMOL/L (135-145); TRIGLYCERIDES 298 MG/DL (<150); VLDL CHOLESTEROL 60 MG/DL (5-40)
[2017-09-18] MEDS: inSUlin ASPART (NovoLOG) 1 UNIT/0.01 ML (CHARGE PER UNIT) SC SCH ×4 (05:48→20:34)
[2017-09-18] MEDS ORDERED: KCL 20 MEQ TAB (K-DUR) PO SCH (06:00)
[2017-09-18] MEDS ORDERED: MAGNESIUM 1 GM/100 ML IVPB 100 ML IV SCH (06:00)
[2017-09-18] MEDS ORDERED: POTASSIUM CL 10MEQ/50ML IVPB 50 ML IV SCH (06:00)
--- NOTE | 2017-09-18 07:13 | Diagnostic Imaging Report ---
INDICATION: Wernicke's encephalopathy. Comparison is made with prior examination from 09/17/2017. FINDINGS: Heart size is normal. There is some venous congestion. There is a more focal right alveolar infiltrate in the right lung base. There is no pleural effusion or pneumothorax. The mediastinum is unremarkable. IMPRESSION: Moderate central pulmonary venous congestion with a slightly more focal alveolar infiltrate in the right lung. Dictated by: Dictated on workstation # [id number]
--- NOTE | 2017-09-18 07:58 | Pulmonary Consultation ---
History of Present Illness History of Present Illness Date of Consultation 09/18/17 07:52 Time Seen by Provider: 07:53 Date of Admission History of Present Illness 77yo who presented to [facility] secondary to stroke like symptoms Allergies and Home Medications Allergies Coded Allergies: amoxicillin (Verified Allergy, Unknown, 09/17/17) lisinopril (Verified Allergy, Unknown, 09/17/17) Home Medications Amlodipine Besylate 10 Mg Tablet, 10 MG PO DAILY, (Reported) Aspirin 81 Mg Tablet.dr, 81 MG PO DAILY, (Reported) Cholecalciferol (Vitamin D3) 5,000 Unit Capsule, 5,000 UNIT PO DAILY, (Reported) Furosemide 40 Mg Tablet, 40 MG PO DAILY, (Reported) Glipizide 10 Mg Tab.er.24, 10 MG PO DAILY, (Reported) Glipizide 10 Mg Tab.er.24, 5 MG PO HS, (Reported) Irbesartan 150 Mg Tablet, 150 MG PO DAILY, (Reported) Metformin HCl 1,000 Mg Tablet, 1,000 MG PO DAILY, (Reported) Metformin HCl 1,000 Mg Tablet, 500 MG PO 1800, (Reported) LAST FILLED #180 02-16-17 TAKES 1/2 (1000MG) TABLET Metoprolol Succinate 50 Mg Tab.er.24h, 50 MG PO DAILY, (Reported) Omeprazole 20 Mg Capsule.dr, 20 MG PO DAILY, (Reported) Peg 400/Hypromellose/Glycerin 15 Ml Drops, 1-2 DROPS OU TID PRN for DRY EYES, ( Reported) Rosuvastatin Calcium 40 Mg Tablet, 40 MG PO HS, (Reported) Spironolactone 25 Mg Tablet, 12.5 MG PO DAILY, (Reported) TAKES 1/2 (25MG) TABLET Past Rwwtras-Ofhoun-Axcnsd Hx Patient Social History Alcohol Use: Occasionally Uses Alcohol Beverage of Choice: Wine Recreational Drug Use: No Smoking Status: Former Smoker Type Used: Cigarettes Recent Foreign Travel: No Contact w/Someone Who Travel: No Recent Infectious Disease Expo: No Recent Hopitalizations: No Immunizations Up To Date Date of Pneumonia Vaccine: Aug 23, 2013 Date of Influenza Vaccine: Jul 23, 2017 Seasonal Allergies Seasonal Allergies: No Surgeries History of Surgeries: Yes (aortic valve replac) Surgeries: Cardiac Respiratory History of Respiratory Disorde: Yes Respiratory Disorders: Sleep Apnea Currently Using CPAP: No Currently Using BIPAP: No Cardiovascular History of Cardiac Disorders: No (aortic valve replac) Cardiac Disorders: High Cholesterol, Hypertension Neurological History of Neurological Disord: No Genitourinary History of Genitourinary Disor: Yes (kidney dx) Gastrointestinal History of Gastrointestinal Di: Yes Gastrointestinal Disorders: Gastroesophageal Reflux Musculoskeletal History of Musculoskeletal Dis: No Endocrine History of Endocrine Disorders: Yes Endocrine Disorders: Diabetes, Non-Insulin dep HEENT History of HEENT Disorders: No Cancer History of Cancer: No Psychosocial History of Psychiatric Problem: No Integumentary History of Skin or Integumenta: No Blood Transfusions History of Blood Disorders: No Adverse Reaction to a Blood Tr: Yes Family Medical History Significant Family History: No Pertinent Family Hx Exam Exam Vital Signs Date Time Temp Pulse Resp B/P (MAP) Pulse Ox O2 Delivery O2 Flow Rate FiO2 09/18/17 06:00 63 149/61 (90) 91 NIV CPAP 09/18/17 05:00 61 137/57 (83) 89 NIV CPAP 09/18/17 04:00 99.8 09/18/17 04:00 62 138/57 (84) 90 NIV CPAP 09/18/17 04:00 Room Air 09/18/17 03:00 68 22 166/70 (102) 92 NIV CPAP 09/18/17 02:00 60 19 139/65 (89) 94 NIV CPAP 09/18/17 01:00 56 137/54 (81) 91 NIV CPAP 09/18/17 01:00 56 09/18/17 00:00 68 127/50 (75) 92 NIV CPAP 09/18/17 00:00 Room Air 09/17/17 23:15 98.9 09/17/17 23:00 69 18 139/51 (80) 95 Room Air 09/17/17 22:00 61 25 142/57 (85) 94 Room Air 09/17/17 21:00 61 11 119/61 (80) 96 Room Air 09/17/17 21:00 98.5 09/17/17 20:00 Room Air 09/17/17 20:00 64 12 136/66 (89) 97 Room Air 09/17/17 19:51 101.3 09/17/17 19:48 101.3 09/17/17 19:24 100.5 09/17/17 19:00 74 21 114/73 (87) 92 Room Air 09/17/17 19:00 74 09/17/17 18:00 80 23 132/54 (80) 96 Room Air 09/17/17 17:39 99.8 09/17/17 17:00 64 20 141/66 (91) 96 Room Air 09/17/17 16:00 59 18 174/74 (107) 93 Room Air 09/17/17 15:41 Room Air 09/17/17 15:00 70 22 187/83 (117) 97 Room Air 09/17/17 14:00 71 17 126/79 (95) 99 Room Air 09/17/17 13:45 66 21 170/114 (132) 99 Room Air 09/17/17 13:30 65 16 152/77 (102) 100 Room Air 09/17/17 13:15 67 17 155/76 (102) 99 Room Air 09/17/17 13:00 74 21 137/62 (87) 100 Room Air 09/17/17 12:55 97.2 09/17/17 12:55 74 25 161/59 (93) 97 Room Air 09/17/17 12:53 74 09/17/17 12:50 Room Air 09/17/17 12:31 61 18 88/59 99 09/17/17 08:50 0 09/17/17 08:40 96.8 72 18 137/85 (102) 95 I & O 09/18/17 07:00 Intake Total 2081 ml Output Total 2000 ml Balance 81 ml General Appearance: No Apparent Distress, WD/WN, Obese HEENT: PERRL/EOMI, Moist Mucous Membranes Neck: Non Tender, Supple, No JVD Respiratory: Lungs Clear, No Respiratory Distress Cardiovascular: Regular Rate, Rhythm, No Murmur Capillary Refill: Less Than 3 Seconds Peripheral Pulses: 2+ Dorsalis Pedis (R), 2+ Left Dors-Pedis (L), 2+ Radial Pulses (R), 2+ Radial Pulses (L) Gastrointestinal: normal bowel sounds, non tender, soft Extremity: Normal Capillary Refill, Non Tender, No Calf Tenderness, No Pedal Edema Neurologic/Psychiatric: Alert, Oriented x3, No Motor/Sensory Deficits, Normal Mood/Affect, engineer technician II-XII Norm as Tested, Other (dysphasia noted, gait not tested) Skin: Normal Color, Warm/Dry Results Lab Laboratory Tests 09/17/17 08:57 09/18/17 03:40 Assessment/Plan Assessment/Plan Acute CVA s/p TPA -Dysphagia eval pending -Neuro checks -MRI, carotid dopplers, echo -Start Antiplatelet therapy 24hrs after TPA given Pneumonia - possible aspiration -Start Clindamycin and Rocephin -Check Soto cultures JORGE -Pt is currently using her CPAP machine -Will need to check CPAP download 330 JOSE MIGUEL HUITRON DO Sep 18, 2017 07:58
[2017-09-18] MEDS ORDERED: cefTRIAXone INJECTION 1,000 MG in NS (IVPB) 50 ML IV SCH (09:00)
[2017-09-18] MEDS ORDERED: CLINDAMYCIN 600 MG/50 ML IVPB 50 ML IV SCH (09:00)
[2017-09-18] MEDS: NS IV 1000 ML 1,000 ML IV SCH (09:28)
--- NOTE | 2017-09-18 10:37 | ST Dysphagia Evaluation ---
Speech Evaluation-General Medical Diagnosis CVA Onset Date: Sep 17, 2017 Therapy Diagnosis Therapy Diagnosis: Oropharyngeal Swallow WNL Precautions Precautions/Isolations: Fall Prevention, Standard Precautions Referral Referring Physician: Dr. Amalia Hoffman Reason for Referral: Evaluation/Treatment Clinical Bedside Swallowing Evaluation Medical History Pertinent Medical History: DM, HTN Current History The patient was recently admitted to [facility] following stroke-like symptoms. Reviewed History: Yes Social History Current Living Status: Spouse Speech PLF/Current-Dysphagia Prior Level of Function The patient denied prior challenges with swallowing or signs/symptoms of aspiration with any consistency she currently consumes. Subjective The patient was seated upright in bed upon entrance. The patient greeted the clinician upon entrance and was agreeable to participation in the dysphagia evaluation. Cognitive Status Patient Orientation: Person, Place, Time, Situation Oral Motor Skills Dentition: Natural Ability to Follow Directions: Excellent The patient has been placed NPO pending the results of the swallowing evaluation. Oral Expression Ability: Moderate Impairment Voice Voice Phonatory-Based Quality: Normal Voice Pitch: Normal Voice Loudness: Normal Face Facial Symmetry: Asymmetrical (Slight right facial droop noted.) Oral-Facial Assessment Oral-Facial Dentition: Normal Labial Seal Description: Droops Right (Slight.) Smile: Droops Right (Slightly.) Puff Cheeks: Reduced Strength (Right.) Lingual Protrusion: Normal Lingual ROM: Normal Lingual Strength: Normal Volitional Dry Swallow: Yes Voluntary Cough: Yes Can Clear Throat Volitionally: Yes Productive Cough: Yes Productive Throat Clear: Yes Dysphagia Evaluation Consistencies Presented: Regular, Thin Liquid, Pureed - No oral impairments were noted throughout the swallowing evaluation. - No pharyngeal impairments were noted throughout the swallowing evaluation. - No signs/symptoms of aspiration were demonstrated with multiple boluses of any consistency provided. The patient's vocal quality remained clear throughout the session. Dietary Recommendations: Regular Liquid Recommendations: Thin Swallowing Precautions: Small Bites and Sips, Sitting Upright 90 Degrees Dysphagia Evaluation Summary The patient demonstrated an oropharyngeal swallow function within normal limits. Speech-Plan Treatment Plan Speech Therapy Treatment Plan: Discontinue ST Evaluation, only. Frequency: 1 time per week Estimated Hrs Per Day: .25 hour per day Rehab Potential: Good Safety Risks/Education Teaching Recipient: Patient Teaching Methods: Discussion Response to Teaching: Verbalize Understanding Education Topics Provided: Results, Recommendations, Plan of Care Time Speech Therapy Time In: 08:50 Speech Therapy Time Out: 09:10 Total Billed Time: 20 Billed Treatment Time 1, DYSEVS Speech GCodes Functional Limitation-Current Current: RALPH Modifier: CH Functional Limitation-Goal Goal: SWALGOAL Modifier: CH Functional Limitation-D/C Discharge: [facility] Modifier: ROBYN SOLIZ Sep 18, 2017 10:36
--- NOTE | 2017-09-18 10:47 | ST Cognitive Linguistic Eval ---
Speech Evaluation-General Medical Diagnosis CVA Onset Date: Sep 17, 2017 Therapy Diagnosis Therapy Diagnosis: Moderate Expressive Aphasia, Mild Dysarthria Precautions Precautions/Isolations: Fall Prevention, Standard Precautions Referral Referring Physician: Dr. Amalia Hoffman Reason for Referral: Evaluation/Treatment Speech and Language Evaluation Medical History Pertinent Medical History: DM, HTN Current History The patient was recently admitted to [facility] with stroke like symptoms including right sided weakness and slurred speech. Reviewed History: Yes Social History Current Living Status: Spouse Speech PLF-Current Status Prior Level of Function The patient denied prior challenges with speech or language, stating she independently lived in [place], [place], completing all ADL tasks alone or with the aid of her . Subjective The patient was seated upright in bed upon entrance. The patient greeted the clinician and was agreeable to participation in the speech and language evaluation. Per patient, she was unable to expressively communicate the day prior. The patient reports her speech is getting "better," however, she continues to substitute whole words (paraphasia) and is often unable to "say what she wants. " (word-finding). Language Eval: Auditory Comprehends Simple Yes/No Ques: Functional Indent/Objects Multiple Bella: Functional Ident/Pics in Multiple Bella: Functional Follows 1-Step Commands: Functional Follows Complex Directions: Functional Follows General Conversations: Functional The patient's comprehension appears to be within normal limits. Language Eval: Verbal Language Completes Spontaneous Greeting: Functional Produces Auto, Serial Info: Mild Imitates Simple Words/Phrases: Mild Word Finding: Moderate Requests Basic Needs: Mild States Basic Personal Info: Mild Expresses Complex Ideas: Moderate The patient demonstrates intermittent paraphasia, as well as, word-finding halts and errors. The patient is aware of these deficits and does demonstrate appropriate frustration when paraphasias occur. Language Evaluation: Reading Comprehends Single Nouns: Functional Follows Simple Written Direct: Functional Comprehends Multiple Sentences: Functional Language Evaluation: Writing Copies/Traces: Moderate Writes Personal Information: Moderate Writes Short Phrases: Moderate (The patient's written language mirrors her spoken language at this time.) Cognitive Patient Orientation The patient is oriented to location, month, day of week, and year. Objective Oral Motor/Speech Production The patient demonstrates a slight right facial droop, which does cause imprecise articulation (slight). Impression The patient demonstrates moderate expressive aphasia and mild dysarthria characterized by whole word paraphasia and word-finding errors. Speech Short Term Goals Short Term Goals Short Term Goals 1. The patient will recall and demonstrate three word-finding strategies in isolation and throughout informal conversation. 2. The patient will complete confrontational naming of ADL objects with zero occurrences of whole-word paraphasia. Time Frame-STG: Five Days Speech Detention Goals Railroad Dining Car Stewardess Goals 1.) The patient will demonstrate improved expressive communication for increased function and safety in the least restrictive setting. Time Frame: One Week Speech-Plan Treatment Plan Speech Therapy Treatment Plan: Continue Plan of Care Continue skilled speech pathology to target functional expressive communication. Treatment Duration: Sep 25, 2017 Frequency: 3 times per week Estimated Hrs Per Day: .25 hour per day Rehab Potential: Good Safety Risks/Education Teaching Recipient: Patient Teaching Methods: Discussion Response to Teaching: Verbalize Understanding Education Topics Provided: Results, Recommendations, Plan of Care Discharge Recommendations Acute Rehab Time Speech Therapy Time In: 09:10 Speech Therapy Time Out: 09:30 Total Billed Time: 20 Billed Treatment Time 1, SPSNDCOMP Speech GCodes Complexity Level Test(s)/Tool Used to Determine: FIM Functional Limitation-Current Current: LANEXCUR Modifier: CK Functional Limitation-Goal Goal: LANEXGOAL Modifier: ROBYN BRYANT Sep 18, 2017 10:47
--- NOTE | 2017-09-18 11:38 | Physical Therapy Daily Note ---
PT Daily Note-Current Subjective Patient is very agreeable to participate with PT. Family present. Pain Numeric Pain Scale: 0-No Pain Location: No Pain Reported Mental Status Patient Orientation: Normal For Age Attachments: Rosario Catheter, IV Transfers Functional [place] Measure 0=Not Assessed/NA 4=Minimal Assistance 1=Total Assistance 5=Supervision or Setup 2=Maximal Assistance 6=Modified [place] 3=Moderate Assistance 7=Complete IndependenceIRFPAI Quality Coding Scale 6 Independent with activity with or without an assistive device 5 Patient requires set up or clean up by helper. Patient completes activity by themselves 4 Supervision or touching assist (CGA). [place] provide cues , steadying assist 3 The helper provides less than half the effort to complete the activity 2 The helper provides more than half the effort to complete the activity 1 Dependent. The helper does all the effort to complete an activity 7 Patient refused to complete or attempt activity 9 The patient did not perform the activity before the current illness or injury 88 Not attempted due to Medical conditions or safety concerns Transfers (B, C, W/C) (FIM): 6 Scootin Sit to/from Stand: 6 Weight Bearing Right Lower Extremity: Right Weight Bearing/Tolerated Left Lower Extremity: Left Weight Bearing/Tolerated Gait Training Gait (FIM): 6 Distance (FIM): 3=150 ft Distance: 400' Gait Level of Assist: 6 Gait Assistive Device: FWW steady, functional, safe gait sequence; No deviation Assessment Patient is much improved with gross motor skills and reports she feels she is getting back to "normal". Patient to move to 4th floor on this date per report. Plan dismissal this week. PT Geosciences Faculty Member Goals Geosciences Faculty Member Goals PT Usp Goals Time Frame: Sep 26, 2017 Transfers (B,C,W/C) (FIM): 6 Gait (FIM): 6 Gait distance (FIM): 3=150 ft Distance: 275' Gait Level of Assist: 6 Gait Assistive Device: FWW PT Plan Treatment/Plan Treatment Plan: Continue Plan of Care Treatment Plan: Bed Mobility, Education, Functional Activity Chary, Functional Strength, Gait, Safety, Therapeutic Exercise, Transfers Treatment Duration: Sep 26, 2017 Frequency: 6 times per week Estimated Hrs Per Day: .5 hour per day Patient and/or Family Agrees t: Yes Time/GCodes Time In: 1105 Time Out: 1118 Total Billed Treatment Time: 13 Total Billed Treatment 1 visit GT 13 min PT/OT Therapy GCodes Therapy Functional Limitation: Physical Therapy Test(s)/Tool used to determine: FIM Functional Limitation-Current Modifier: CK Functional Limitation-Goal Charge Code: MOBANDREEAAL Modifier: JOANNA MCADAMS PT Sep 18, 2017 11:38
--- NOTE | 2017-09-18 12:08 | Progress Note-Hospitalist ---
Standard Progress Note Progress Notes/Assess & Plan Date Seen 09/18/17 Time Seen by Provider: 12:05 Diagnosis Dysphasia- rule out stroke Assess & Plan/Chief Complaint The patient is a 77-year-old white female who was visiting family in the area ( [place]) She lives in [place]. They were driving south and apparently were just south of [place] when she noted the inability to form words and felt her right face to be numb. She also states that she seemed to drop things in her right hand. She was able to communicate to her that this was not right and she needed to go to the hospital. They had seen the signs and turned the car around came back to the [facility] on the bypass and came to the emergency room. She was found to have clearly slurred speech and much mouth. She was not able to tobacco stemmer machine well. And she could not stand. The CT scan showed no evidence of hemorrhage and she was given our TPA. Today she states that she feels much better and her speech is quite clear. She has been able to swallow. In my questioning she was able to give answers which her family verified as to accuracy. She has been evaluated by speech and found to be competent in swallowing. Physical exam: The patient is sitting up in bed and is quite alert. Her speech is slow and careful but quite clear. Lungs are clear to auscultation. CV is regular without murmur. Abdomen is obese. Extremities show biceps and triceps to be equal right and left. Pediatric Registered Nurse is 2+ and equal. She is able to perform finger to thumb alternating movements equally bilaterally. The lower extremities show no edema. She is able to straight leg lift bilaterally. She is able to dorsi and plantar flex bilaterally and equally. Impression: Clinical findings consistent with left hemispheric TIA or CVA. 2.virtually total resolution at this time. Plan: PT and OT eval. Transfer to floor. Labs Laboratory Tests 09/17/17 08:57 09/18/17 03:40 LAUREN KING MD Sep 18, 2017 12:08
[2017-09-18] MEDS ORDERED: GADOBUTROL 15 MMOL/15 ML (GADAVIST) VIAL IV ONE (13:45)
--- NOTE | 2017-09-18 14:25 | Diagnostic Imaging Report ---
CLINICAL INDICATION: Patient having difficulty holding onto things with slurred speech x1 day. Today symptoms have improved. Exam: MRI of the brain performed without and with 13 cc of Gadavist IV contrast. Sequences include axial DWI, ADC map, axial gradient echo, axial T2, axial FLAIR, axial T1, axial T1 post IV contrast, coronal T1 fat-sat post IV contrast, and sagittal T1 post IV contrast. Comparison: CT angiogram of the head/neck dated 09/17/2017. Findings: There is interval development of a small to moderate-sized confluent and patchy area of acute cerebral infarct involving the posterior left insula, posterior left temporal lobe, and left parietal lobe regions with associated high T2 signal. This was not evident on the prior CT scan. There is no associated parenchymal enhancement. There is no intracranial hemorrhage, brain herniation, or midline shift. The [place] vascular structures show no gross abnormality as visualized. There are focal and patchy areas of high T2 signal white matter changes seen within both cerebral hemispheres, likely representing chronic small vessel ischemic disease. The brain parenchymal volume appears appropriate for patient's age. There is no hydrocephalus. Basal cisterns are unremarkable. Extracranial soft tissue, skull, and orbits are unremarkable. There is mild mucosal thickening involving left maxillary sinus, ethmoid sinus, frontal sinus. Temporal bone structures are unremarkable. IMPRESSION: 1: Interval development of a small to moderate-sized acute cerebral infarct involving the posterior left insula, posterior left temporal lobe, and left parietal lobe regions with associated high T2 signal. There is no associated IV contrast enhancement. 2: Age-related brain parenchymal changes. Results of this report were discussed with Dr. Raj Mercer via the telephone on 09/18/2017 at 1415 hrs. Dictated by: Dictated on workstation # [id number]
--- NOTE | 2017-09-18 15:23 | Occupational Ther Daily Note ---
OT Current Status-Daily Note Subjective Pt sitting EOB, requesting to use restroom. Mental Status/Objective Functional [place] Measure 0=Not Assessed/NA 4=Minimal Assistance 1=Total Assistance 5=Supervision or Setup 2=Maximal Assistance 6=Modified [place] 3=Moderate Assistance 7=Complete [place] ADL-Treatment Sit to stand from EOB with modified independence. Gait to restroom with FWW, no LOB noted. Transfer to toilet with supervision using grab bars. Pt able to complete toileting hygiene and clothing management with SBA. Pt stood at sink to wash hands, brush teeth, comb hair, and wash face with set up. No LOB during activity. Pt returned to EOB, sit to supine with modified independence. Pt resting in bed with needs met after session. Grooming (FIM): 5 Toileting (FIM): 5 Toilet/Commode Transfer (FIM): 5 OT Short Term Goals Short Term Goals 1=Demonstrate adherence to instructed precautions during ADL tasks. 2=Patient will verbalize/demonstrate understanding of assistive devices/ modifications for ADL. 3=Patient will improve strength/tolerance for activity to enable patient to perform ADL's. OT Gold Marker Goals Gold Marker Goals Time Frame: Sep 28, 2017 Eating (FIM): 6 Grooming(FIM): 6 Bathing(FIM): 5 Upper Body Dressing(FIM): 6 Lower Body Dressing(FIM): 6 Toileting(FIM): 6 Toilet/Commode Transfer(FIM): 6 Additional Goals: 2-Verbalize Understanding, 3-ImproveStrength/Chary 1=Demonstrate adherence to instructed precautions during ADL tasks. 2=Patient will verbalize/demonstrate understanding of assistive devices/ modifications for ADL. 3=Patient will improve strength/tolerance for activity to enable patient to perform ADL's. OT Education/Plan Problem List/Assessment Pt demonstrates decreased ADL functioning and mobility. Pt to benefit from skilled OT intervention for ADL training, transfers, strengthening, and safety education to improve functional level and allow safe discharge. Discharge Recommendations Plan/Recommendations: Continue POC Treatment Plan/Plan of Care Patient would benefit from OT for education, treatment and training to promote independence in ADL's, mobility, safety and/or upper extremity function for ADL' s. Plan of Care: ADL Retraining, Functional Mobility, UE Funct Exercise/Act Treatment Duration: Sep 28, 2017 Frequency: 5 times per week Estimated Hrs Per Day: .25 hour per day Rehab Potential: Good Time/GCodes Start Time: 14:11 Stop Time: 14:24 Total Time Billed (hr/min): 13 Billed Treatment Time 1 visit, ADL(13minutes) PT/OT Therapy GCodes Therapy Functional Limitation: Physical Therapy Test(s)/Tool used to determine: FIM Functional Limitation-Current Modifier: CK Functional Limitation-Goal Charge Code: MOBGOAL Modifier: ROBERTO DESAI OT Sep 18, 2017 15:23
[2017-09-18] MEDS: ENOXAPARIN 60 MG/0.6 ML (LOVENOX) SYR SC SCH (16:55)
[2017-09-18] MEDS: ASPIRIN 325 MG (5 GR) TABLET PO SCH (16:55)
[2017-09-18] MEDS ORDERED: ACETAMINOPHEN 325 MG TABLET/CAPLET (TYLENOL) ONE (20:25)
[2017-09-18] MEDS: ATORVASTATIN 80 MG (LIPITOR) TABLET PO SCH (20:29)
[2017-09-18] MEDS ORDERED: ACETAMINOPHEN 325 MG TABLET/CAPLET (TYLENOL) PO PRN (20:30)
[2017-09-18] MEDS ORDERED: ACETAMINOPHEN 500 MG TAB (TYLENOL) PO PRN (20:30)
[2017-09-19] MEDS: ENOXAPARIN 60 MG/0.6 ML (LOVENOX) SYR SC SCH (00:24)
[2017-09-19 00:41] VITALS: BP 121/55
[2017-09-19 03:42] VITALS: BP 148/67
[2017-09-19] MEDS: inSUlin ASPART (NovoLOG) 1 UNIT/0.01 ML (CHARGE PER UNIT) SC SCH ×2 (05:17→11:54)
[2017-09-19 08:00] VITALS: BP 187/79
[2017-09-19] MEDS: ASPIRIN 325 MG (5 GR) TABLET PO SCH (09:00)
[2017-09-19] MEDS ORDERED: ASPIRIN 325 MG (5 GR) TABLET PO SCH (09:00)
[2017-09-19] MEDS ORDERED: CLOP75TA69 PO (11:22)
--- NOTE | 2017-09-19 11:58 | Occupational Ther Daily Note ---
OT Current Status-Daily Note Subjective Pt sitting in chair, agrees to therapy. Mental Status/Objective Functional [place] Measure 0=Not Assessed/NA 4=Minimal Assistance 1=Total Assistance 5=Supervision or Setup 2=Maximal Assistance 6=Modified [place] 3=Moderate Assistance 7=Complete [place] ADL-Treatment Pt has just finished bathing with assist from nursing. Other Treatment Pt states she is feeling better, but still has concerns about coordination in right hand. Pt completed grooved pegboard activity with right hand to increase fine motor coordination and manipulation skills. Pt has mild difficulty manipulating small pegs, but is able to complete task with increased time. No assist needed. Pt completed putty activity with right hand using mild resistance putty to increase strength and coordination. Pt able to remove small beads from putty without assistance. Pt stacked small medicine cups with right hand to increase coordination. Pt then used right hand to flower picker small beads and place in container. Pt states she has been practicing handwriting with right hand and while penmanship is not quite normal, it is improved from two days ago. Pt sitting in chair with needs met and spouse present after session. OT Short Term Goals Short Term Goals 1=Demonstrate adherence to instructed precautions during ADL tasks. 2=Patient will verbalize/demonstrate understanding of assistive devices/ modifications for ADL. 3=Patient will improve strength/tolerance for activity to enable patient to perform ADL's. OT Car Spotter Goals Longterm Goals Time Frame: Sep 28, 2017 Eating (FIM): 6 Grooming(FIM): 6 Bathing(FIM): 5 Upper Body Dressing(FIM): 6 Lower Body Dressing(FIM): 6 Toileting(FIM): 6 Toilet/Commode Transfer(FIM): 6 Additional Goals: 2-Verbalize Understanding, 3-ImproveStrength/Chary 1=Demonstrate adherence to instructed precautions during ADL tasks. 2=Patient will verbalize/demonstrate understanding of assistive devices/ modifications for ADL. 3=Patient will improve strength/tolerance for activity to enable patient to perform ADL's. OT Education/Plan Problem List/Assessment Pt demonstrates decreased ADL functioning and mobility. Pt to benefit from skilled OT intervention for ADL training, transfers, strengthening, and safety education to improve functional level and allow safe discharge. Discharge Recommendations Plan/Recommendations: Continue POC Treatment Plan/Plan of Care Patient would benefit from OT for education, treatment and training to promote independence in ADL's, mobility, safety and/or upper extremity function for ADL' s. Plan of Care: ADL Retraining, Functional Mobility, UE Funct Exercise/Act Treatment Duration: Sep 28, 2017 Frequency: 5 times per week Estimated Hrs Per Day: .25 hour per day Rehab Potential: Good Time/GCodes Start Time: 11:04 Stop Time: 11:30 Total Time Billed (hr/min): 26 Billed Treatment Time 1 visit, FAx2(26minutes) PT/OT Therapy GCodes Therapy Functional Limitation: Physical Therapy Test(s)/Tool used to determine: FIM Functional Limitation-Current Modifier: CK Functional Limitation-Goal Charge Code: MOBGOAL Modifier: ROBERTO DESAI OT Sep 19, 2017 11:58
--- NOTE | 2017-09-19 12:02 | Discharge Summary-Hospitalist ---
Diagnosis/Chief Complaint Date of Admission Sep 17, 2017 at 11:20 Date of Discharge Discharge Date: Sep 19, 2017 Admission Diagnosis Dysphasia- rule out stroke Discharge Diagnosis (1) Acute CVA (cerebrovascular accident) Status: Acute Assessment & Plan: Clinically appears to be an acute stroke though no evidence upon review of imaging S/p TPA will monitor in ICU Neurochecks Will get MRI, carotid dopplers, echo Monitor on Tele Will getting lipid panel Hold ASA until 24 hour after TPA PT/OT/ST (2) Dysphasia Status: Acute Assessment & Plan: Will consult Speech for formal eval (3) HTN (hypertension) Status: Chronic Assessment & Plan: Low to normotensive currently Hold antihypertensives (4) Non-insulin dependent type 2 diabetes mellitus Status: Chronic Assessment & Plan: Will hold metformin as just received contrast SSI A (5) Dyslipidemia associated with type 2 diabetes mellitus Status: Chronic Assessment & Plan: Resume statin tonight if passes swalow eval (6) Prophylactic measure Status: Acute Assessment & Plan: Hold Lovenox for TPA SCDs only today- can resume tomorrow NPO until swallow eval [place] [id number] Discharge Summary Discharge Physical Examination Allergies: Coded Allergies: amoxicillin (Verified Allergy, Unknown, 09/17/17) lisinopril (Verified Allergy, Unknown, 09/17/17) Vitals & I&Os Vital Signs Date Time Temp Pulse Resp B/P (MAP) Pulse Ox O2 Delivery O2 Flow Rate FiO2 09/19/17 08:00 98.7 72 20 187/79 (115) 96 Room Air 09/17/17 08:50 0 Hospital Course Notes from 09/19/27 Pharmacy Review: Plavix should be added for better platelet coverage. Pt was only on Aspirin communications intern: Pt's family member would like her to DC Pt's niece, who works in rehab, will reach out to family to get pt's home. Pt's has not been helpful during her treatment here and seems to deny that she had any issues. SW Review: In-pt rehab denied pt, so meds need to be sent to pharmacy and pt should obtain therapy at home PT Review: Three beds are available in IRU Pt Interview: Pt was in shower during interview Results and labs look good and this was discussed Pt's states they were headed back to [place] from [place] for a family member's surgery. MRI was discussed with the pt and stroke was addressed. Possible DC was discussed with meds and establish with therapy at home or to stay here to do therapy. Pt decided that she would like to stay for a short time before heading home to [place]. No fever, vital signs stable, pleasant, improved, taking shower Assessment: Acute CVA confirmed on MRI with temporary dysphagia now resolved and fine motor skill subtle deficit Plan: Plavix to pharmacy Rehab in [place] Scribed by Georgie Aquino under direct supervision of Dr. Brynn Callahan. Hospital course: Patient had an uneventful hospital course. She was admitted for stroke protocol noted aspirin was maintained on home medication so workup ensued showing no evidence of stroke but MRI confirmed that fact consistent with dysphagia that resolved by time of discharge and residual fine motor skill deficit that is subtle in nature. She'll be placed on Plavix in addition to her baby aspirin and follow-up with occupational therapy at a outpatient facility when she returns home to [place]. Labs (last 24 hrs) Laboratory Tests 09/18/17 15:26: Glucometer 239H 09/18/17 20:30: Glucometer 244H 09/19/17 05:15: Glucometer 197H 09/19/17 11:35: Glucometer 324H Microbiology 09/17/17 MRSA Screen - Final, Complete MRSA not isolated Pending Labs Laboratory Tests 09/19/17 05:15: Glucometer 197 09/19/17 11:35: Glucometer 324 Discussion & Recommendations Discharge Planning: <30 minutes discharge planning Discharge Home Medications: Active Scripts Active Plavix (Clopidogrel Bisulfate) 75 Mg Tablet 75 Mg PO DAILY Reported Visine Tears Drops (Peg 400/Hypromellose/Glycerin) 15 Ml Drops 1-2 Drops OU TID PRN Vitamin D3 (Cholecalciferol (Vitamin D3)) 5,000 Unit Capsule 5,000 Unit PO DAILY Aspirin EC (Aspirin) 81 Mg Tablet.dr 81 Mg PO DAILY Metformin HCl 1,000 Mg Tablet 500 Mg PO 1800 LAST FILLED #180 02-16-17 TAKES 1/2 (1000MG) TABLET Metformin HCl 1,000 Mg Tablet 1,000 Mg PO DAILY Glipizide Xl (Glipizide) 10 Mg Tab.er.24 5 Mg PO HS Spironolactone 25 Mg Tablet 12.5 Mg PO DAILY TAKES 1/2 (25MG) TABLET Glipizide ER (Glipizide) 10 Mg Tab.er.24 10 Mg PO DAILY Rosuvastatin Calcium 40 Mg Tablet 40 Mg PO HS Irbesartan 150 Mg Tablet 150 Mg PO DAILY Omeprazole 20 Mg Capsule.dr 20 Mg PO DAILY Amlodipine Besylate 10 Mg Tablet 10 Mg PO DAILY Metoprolol Succinate 50 Mg Tab.er.24h 50 Mg PO DAILY Furosemide 40 Mg Tablet 40 Mg PO DAILY Instructions to patient/family Please see electronic discharge instructions given to patient. Clinical Quality Measures DVT/VTE Risk/Contraindication: Risk Factor Score Per Nursin RFS Level Per Nursing on Admit: 4+=Very High Stroke: Date of last known well: Sep 17, 2017 Time of last known well: 07:45 Symptoms onset unknown: No Quality Measures-Stroke Pt: Lipid panel ordered, VTE Problem Qualifiers (1) HTN (hypertension): Hypertension type: essential hypertension Qualified Codes: I10 - Essential ( primary) hypertension BRYNN CALLAHAN DO Sep 19, 2017 12:01
[2017-09-19 13:20] VITALS: BP 187/79
[2017-09-19] MEDS ORDERED: amLODIPine 10 MG (NORVASC) TAB PO NR (13:45)
[2017-09-19] MEDS ORDERED: NON-FORMULARY MEDICATION 1 EA EA (Metformin HCl 500 MG) PO SCH (18:00)
[2017-09-19] MEDS ORDERED: glipiZIDE XL 10 MG (GLUCOTROL XL) TAB PO SCH (21:00)
[2017-09-19] MEDS ORDERED: NON-FORMULARY MEDICATION 1 EA EA (Rosuvastatin Calcium 40 MG) PO SCH (21:00)
[2017-09-20] MEDS ORDERED: NON-FORMULARY MEDICATION 1 EA EA (Cholecalciferol (Vitamin D3) (Vitamin D3) 5,000 UNIT) PO SCH ×4 (09:00→09:30)
[2017-09-20] MEDS ORDERED: amLODIPine 10 MG (NORVASC) TAB PO SCH (09:00)
[2017-09-20] MEDS ORDERED: FUROSEMIDE 40 MG (LASIX) TAB PO SCH (09:00)
[2017-09-20] MEDS ORDERED: OMEPRAZOLE 20 MG (PriLOSEC) CAP NON-FORMULARY PO SCH ×4 (09:00→09:30)
[2017-09-20] MEDS ORDERED: NON-FORMULARY MEDICATION 1 EA EA (Metformin HCl 1,000 MG) PO SCH ×4 (09:00→09:30)
[2017-09-20] MEDS ORDERED: SPIRONOLACTONE 25 MG (ALDACTONE) TAB PO SCH ×4 (09:00→09:30)
[2017-09-20] MEDS ORDERED: ASPIRIN E.C. 81 MG (ECOTRIN) TAB PO SCH (09:00)
[2017-09-20] MEDS ORDERED: meTOproloL SUCCINATE 50 MG (TOPROL XL) TAB PO SCH ×4 (09:00→09:30)
[2017-09-20] MEDS ORDERED: glipiZIDE XL 10 MG (GLUCOTROL XL) TAB PO SCH ×4 (09:00→09:30)
[2017-09-20] MEDS ORDERED: IRBESARTAN 150 MG (AVAPRO) TAB PO SCH ×4 (09:00→09:30)
== END 2017-09-19 13:40 | disposition home or self-care (01) | DRG 61 ==
LOC: ER 08:43 → ICU 11:20 → 4TH 11:20 → UNDOADMOB 11:20 → ICU 11:20 → 4TH 09-18 12:22 → UNDODISOB 09-19 13:40
PROVIDERS: ADMIT Family Medicine; ATTEND Family Medicine
DX: I63.9 Cerebral infarction, unspecified (principal); J18.9 Pneumonia, unspecified organism; R47.02 Dysphasia; I10 Essential (primary) hypertension; E11.9 Type 2 diabetes mellitus without complications; E78.5 Hyperlipidemia, unspecified; G47.33 Obstructive sleep apnea (adult) (pediatric); Z95.2 Presence of prosthetic heart valve; Z87.891 Personal history of nicotine dependence
CPT/HCPCS: 36415; 51702; 70450; 70496; 70553; 71045; 80048; 80053; 80061; 81000; 82962; 83735; 84100; 84484; 85025; 85379; 85610; 85730; 87081; 92977; 93005; 93041; 93306; 93880; 96361; 96365